=== PATIENT | male | born 1985 ===

== ENCOUNTER 2020-11-29 04:57 | Emergency (ER) | payer OTHER ==
[~2020-11-29] VITALS: Ht 188 cm; Wt 88.5 kg
[2020-11-29] MEDS ORDERED: METPHE20 PO (05:22)
[2020-11-29] MEDS ORDERED: IBUP400 PO (06:26)
== END 2020-11-29 07:00 | disposition home or self-care (01) ==
LOC: ER 04:57
DX: M51.16 Intervertebral disc disorders with radiculopathy, lumbar region (principal); Z79.899 Other long term (current) drug therapy
CPT/HCPCS: 96372; 99283-25; J1885